=== PATIENT | female | born 1970 ===

== ENCOUNTER 2016-09-09 15:22 | Emergency (ER) | payer BC ==
--- NOTE | 2016-09-09 16:11 | DIAGNOSTIC IMAGING REPORT ---
PROCEDURE: XR CHEST 2 VIEW INDICATION: COUGH TECHNIQUE: PA and lateral views. COMPARISON: None. FINDINGS: Left pulmonary infiltrate. Heart and mediastinum are normal. Thorax is normal. IMPRESSION: 1. Left pulmonary infiltrate.
--- NOTE | 2016-09-09 17:16 | ED NURSING NOTES ---
Clinical Report - Nurses [facility] [address] [place] [address] 09/09/2016 15:27 Patient: JASPER LOPEZ TRIAGE Triage time 1538. Acuity: LEVEL 3. Chief Complaint: (was seen at [facility] yesterday and started on antibiotis, neb tx, and steroids. pt states cough seems worse). --15:57 Vanna Mandujano R.N. 15:38 09/09/16. BP: 128/68. HR: 89. RR: 18. O2 saturation: 95% on room air. Temp: 98.1 F. --15:57 Vanna Mandujano R.N. 15:57 09/09/16. Pain level now 5/10. --18:22 Vanna Mandujano R.N. Weight: 68.4 kg stated. Height/Length: 60 inches Per Patient. BMI: 29.5. --15:47 Vanna Mandujano R.N. Medications Albuterol Sulfate Inhalation 2 puffs, PRN, last dose 1400. --15:51 Vanna Mandujano R.N. Promethazine HCl Oral 5cc , every 6 hours, last dose 0900. --15:52 Vanna Mandujano R.N. Azithromycin Oral 250 mg, daily, last dose on day 2 of 5 day course. --15:52 Vanna Mandujano R.N. Fluticasone Furoate Nasal 1 spray daily . --15:53 Vanna Mandujano R.N. Allergies Diclofenac.(dizziness) --15:54 Vanna Mandujano R.N. History Arrived by private vehicle. Historian: patient. Accompanied by son. Primary physician (yoselin mabry- [facility]). Onset. (wednesday). She has had fever and a cough. PAST MEDICAL HX: Diabetes mellitus. Hypertension. ( Chiai malformation). The patient is post-menopausal. ( migraines). SURGERY HX: Appendectomy. (x2). Left knee surgery. SOCIAL HX: Former smoker (quit 4 years ago). No alcohol use or drug use. --15:57 Vanna Mandujano R.N. Interventions ID band on patient. To treatment room. --15:57 Vanna Mandujano R.N. PHYSICAL ASSESSMENT 15:38. Ambulatory to room. Patient gowned. GENERAL / NEURO / PSYCH: Alert. Oriented X 4. Appears in no acute distress. ( pt c/o feeling weak and tired). RESPIRATORY: The patient can speak in full sentences. Cough. CVS: Capillary refill less than 2 seconds. GI / : Abdomen soft. SKIN: Skin is warm and dry. --15:47 Vanna Mandujano R.N. NURSING PROGRESS NOTES 15:38. Patient gowned. Reassurance given. Patient identifiers checked. Call light placed in reach. Side rails up. Bed placed in lowest position. Patient ready for evaluation- chart flagged. --15:46 Vanna Mandujano R.N. 15:46 09/09/16. Patient transported to radiology by stretcher with tech. --15:46 Vanna Mandujano R.N. 15:56. Patient returned from radiology by stretcher with tech. --15:58 Vanna Mandujano R.N. 17:00 09/09/2016 Site #1 started via IV in the left antecubital space with an 20g angiocath, with aseptic technique and good blood return; one attempt. Blood drawn: rainbow set and cultures x1. Labeled in the presence of the patient. Saline lock flushed with 10 mL saline. --17:31 Vanna Mandujano R.N. 17:10 09/09/2016 Started bag #1 1000 mL IV Fluids IV NS (Saline); at 1000 mL/hr over 1 minute(s) via site #1 via IV pump. IV patency established. IV site checked: no pain, redness, or swelling. IV flushed thoroughly pre- and post-medication administration. --17:31 Vanna Mandujano R.N. 17:17 09/09/2016 Started 2 gm of Rocephin (CefTRIAXone Sodium) IVPB in bag #1 50 mL; at 150 mg/hr over 20 minute(s) via site #1 via IV pump. --17:32 Vanna Mandujano R.N. 16:15 09/09/16. BP: 130/64. HR: 88. RR: 18. O2 saturation: 94%. Temp: deferred. Pain level now: 08/19. --19:34 Vanna Mandujano R.N. 17:37 09/09/2016 Rocephin IVPB Discontinued: bag #1 infused upon discharge. Total amount infused: 50 mL. --19:35 Vanna Mandujano R.N. 18:15 09/09/2016 Site #1 removed upon discharge. Bandaid applied. --19:40 Vanna Mandujano R.N. 18:15 09/09/2016 IV Fluids IV NS Discontinued: bag #1 STOPPED upon discharge. Total amount infused: 1000 mL. IV patency established. IV site checked: no pain, redness, or swelling. IV flushed thoroughly. --19:40 Vanna Mandujano R.N. DISPOSITION / DISCHARGE 18:26 09/09/16. Condition at departure: stable. No learning barriers present. Discharge instructions provided and reviewed with the patient. Reviewed medication(s) (tylenol #3 for pain/cough, continue other meds). Patient verbalized understanding. Written instructions provided in Montenegrin. The patient was discharged home and accompanied by family. She left the Emergency Department ambulatory and via private vehicle. Driving (son). --18:26 Vanna Mandujano R.N. 18:32. Condition at departure: improved and stable. ( states she doesnt feel dizzy anymore). --19:33 Vanna Mandujano R.N. 18:32 09/09/16. BP: 109/59. HR: 82. RR: 18. O2 saturation: 95% on room air. Temp: deferred. Pain level now: 08/19. --19:33 Vanna Mandujano R.N. Locked/Released at 09/09/2016 19:40 by Vanna Mandujano R.N.
--- NOTE | 2016-09-09 17:16 | ED ORDER SUMMARY ---
..... Patient: JASPER LOPEZ OrderSheet [facility] VisitID: [id number] [address] [place] [address] 46y, F Registration Date/Time: 09/09/2016 ORDER SHEET Weight: 68.4 kg (stated) Allergies: Diclofenac GENERAL ORDERS: Chest 2V Urgent (15:35 09/09/2016 Gerard VARGAS) (Ack 15:36 LNations ER Tech1) (15:50 IJurca ER Tech1) CBC w Diff Urgent (15:35 09/09/2016 Gerard VARGAS) (Ack 15:36 LNations ER Tech1) (16:20 IJurca ER Tech1) PT with INR Urgent (15:35 09/09/2016 Gerard VARGAS) (Ack 15:36 LNations ER Tech1) (16:20 IJurca ER Tech1) CMP Urgent (16:16 09/09/2016 Gerard VARGAS) (16:20 IJurca ER Tech1) MEDICATION ORDERS: Rocephin IM 2 gm (NOW) (16:01 09/09/2016 Gerard VARGAS) (Ack 16:06 DDean R.N.) (Cancelled: Other16:17 Gerard VARGAS) IV FLUIDS: IV NS : initial bolus 1000 mL (1000 mL/hr), then none - (NOW) (16:16 09/09/2016 Gerard VARGAS) (17:31 DDean R.N.) Rocephin IV 2 gm/50mL (NOW) (16:17 09/09/2016 Gerard VARGAS) (17:32 DDean R.N.) ORDER SHEET NOTES: [Electronically signed by Vanna Mandujano R.N. (19:40 09/09/2016)] [Electronically signed by Julieta Montaño MD (10:46 09/17/2016)] [Electronically locked/signed by Vanna Mandujano R.N. (19:40 09/09/2016)]
--- NOTE | 2016-09-09 17:16 | ED CLINICAL REPORT ---
Clinical Report - Physicians/Mid Levels [facility] [address] [place] [address] 09/09/2016 15:27 Patient: JASPER LOPEZ Time Seen: 15:34. Arrived- By private vehicle. Historian- patient. HISTORY OF PRESENT ILLNESS Chief Complaint: COUGH. Hemoptysis. This started several days ago and is still present. The illness is described as moderate. The patient has had a cough, a mild sore throat and nasal congestion. She has had scant amounts of blood tinged sputum. No difficulty breathing, chest discomfort or pain, fever or muscle aches. No chills, hoarseness, nasal discharge, sinus pressure or sinus drainage. No ear pain. (Patient was seen yesterday in the urgent care clinic, where she was prescribed Zithromax, an inhaler and steroids. Patient states they did not do an x-ray of her chest.). Additional history - No known contact with a sick individual. Similar symptoms previously: None. Recent medical care: The patient was seen recently at another facility in a clinic. REVIEW OF SYSTEMS No headache, eye discomfort, nausea, vomiting or diarrhea. No abdominal pain, hay fever, pedal edema, calf pain or difficulty with urination. No skin rash, enlarged lymph nodes or joint pain. All systems otherwise negative, except as recorded above. PAST HISTORY Problems: Hypertension. Diabetes Mellitus. Additional Surgeries: Appendectomy. . Knee Surgery. Medications: Fluticasone Furoate Nasal 1 spray daily . Azithromycin Oral 250 mg, daily, last dose on day 2 of 5 day course. Promethazine HCl Oral 5cc , every 6 hours, last dose 0900. Albuterol Sulfate Inhalation 2 puffs, PRN, last dose 1400. Allergies: Diclofenac.(dizziness). SOCIAL HISTORY Former smoker. No alcohol use or drug use. ADDITIONAL NOTES The nursing notes have been reviewed. PHYSICAL EXAM Vital Signs: 09/09/2016 15:38 BP: 128/68. HR: 89. RR: 18. O2 saturation: 95%. Temp: 98.1 F. Have been reviewed. Appearance: Alert. No acute distress. Eyes: Pupils equal, round and reactive to light. Eyes normal inspection. ENT: Nose normal. Neck: Normal inspection. CVS: Normal heart rate and rhythm. Heart sounds normal. Pulses normal. Respiratory: No respiratory distress. Breath sounds normal. (Patient has a mild, occasional cough.). Abdomen: Soft and nontender. No organomegaly. Back: Normal inspection. No CVA tenderness. Skin: Skin warm and dry. Normal skin color. No rash. Normal skin turgor. Extremities: Extremities exhibit normal ROM. No lower extremity edema. Neuro: No motor deficit. No sensory deficit. (Patient is grossly oriented.). LABS, X-RAYS, AND EKG Chest X-ray: Small, patchy infiltrate in the left lung base and left lower lobe. Consistent with pneumonia. Normal heart size. Mediastinum normal. Great vessels normal. Soft tissues normal. No fracture. No bony lesion present. Views: AP. Technique: good. The X-rays were independently viewed by me, interpreted by the radiologist and contemporaneously by me and discussed with the radiologist. Prior films were not available for comparison. Laboratory Tests: CBC w Diff: (ELLEN: 09/09/2016 16:20) ( MsgRcvd 09/09/2016 16:30) Final results Test Result Flag Units (Reference) WHITE BLOOD COUNT 6.1 K/uL (4.5-11.5) RED BLOOD COUNT 5.54 H M/uL (4.00-5.20) HEMOGLOBIN 16.5 H gm/dL (12.0-16.0) HEMATOCRIT 48.7 H % (36.0-46.0) MEAN CELL VOLUME 88 fL (80-100) MEAN CORPUSCULAR HGB 30 pg (26-34) MEAN CORPUSCULAR HGB CONC 34 g/dL (31-37) RED CELL DISTRIBUTION WIDTH 12.1 % (11.6-14.8) PLATELET COUNT 147 L K/uL (150-400) NEUTROPHIL % 67.1 % (50-75) LYMPH % 26.0 % (25-40) MONO % 6.4 % (3-14) EOSINOPHIL % 0.2 % (0-4) BASOPHIL % 0.3 % (0-2) PT with INR: (ELLEN: 09/09/2016 16:20) ( MsgRcvd 09/09/2016 16:34) Final results Test Result Flag Units (Reference) INR 0.9 (0.8-1.2) Low Intensity Therapy: INR 1.5-2.0 PT range 18.5-23.1Mod.Intensity Therapy: INR 2.0-3.0 PT range 23.1-31.5High Intensity Therapy: INR 2.5-3.5 PT range 27.4-35.5High Intensity Therapy 2: INR 3.0-4.0 PT range 31.5-39.3 CMP: (ELLEN: 09/09/2016 16:20) ( MsgRcvd 09/09/2016 16:45) Final results Test Result Flag Units (Reference) GLUCOSE 306 H mg/dL (70-110) BUN 10 mg/dL (7-18) CREATININE 0.8 mg/dL (0.6-1.3) Estimated GFR >60 mL/min Estimated GFR- >60 mL/min Note: Persistent reduction over 3 months in eGFR<60 mL/min/1.73 m2 defines CKD. Patients with eGFR values>=60 mL/min/1.73 m2 may also have CKD if evidence ofpersistent proteinuria. Additional information may be foundat www.kidney.org. SODIUM 133 L mmol/L (136-145) POTASSIUM 3.8 mmol/L (3.5-5.1) CHLORIDE 96 L mmol/L (98-107) CARBON DIOXIDE 24 mmol/L (21-32) CALCIUM 8.4 L mg/dL (8.5-10.1) TOTAL PROTEIN 7.7 g/dL (6.4-8.2) ALBUMIN 3.0 L g/dL (3.3-5.0) BILIRUBIN, TOTAL 0.6 mg/dL (0.0-1.0) ALKALINE PHOSPHATASE 101 U/L (46-116) AST (SGOT) 36 U/L (15-37) ALT (SGPT) 50 U/L (12-78) . Pulse Oximetry: 09/09/2016 15:38 O2 saturation: 95%. (FIO2 - room air). Interpretation: normal. PROGRESS AND PROCEDURES Course of Care: Patient was worked up for her symptoms with a chest x-ray which showed a small retrocardiac pneumonia, as well as a CBC which showed a normal white blood cell count and a slightly in increased hemoglobin and hematocrit. INR was normal in conference a metabolic panel is unremarkable. Patient was treated with parenteral Rocephin to augment the Zithromax that she was ready on. No emergent condition was identified. Patient counseled in person regarding the patient's stable condition, test results, diagnosis and need for follow-up. Concerns were addressed. Old medical records reviewed. Disposition: Discharged. Condition: stable and improved. CLINICAL IMPRESSION Bacterial pneumonia. Vital signs recorded and reviewed; empiric antibiotics given in the ED. No hypoxemia, respiratory failure or sepsis. Moderate hyperglycemia INSTRUCTIONS Drink plenty of fluids. (Your chest x-ray shows pneumonia in the lower part of your left lung. You had been given an extra dose of antibiotics today for this through the IV. You should continue the antibiotics that you've RE been started on until your course is complete. You may take the Tylenol 3 for cough or chest pain. If you have increasing problems with her breathing after the next couple of days you should return to the emergency department for recheck.). Warnings: GENERAL WARNINGS: Return or contact your physician immediately if your condition worsens or changes unexpectedly, if not improving as expected, or if other problems arise. Your Current Medications: CONTINUE TAKING THE FOLLOWING MEDICATIONS: Albuterol Sulfate Inhalation : 2 puffs PRN, Last: 1400. Azithromycin Oral : 250 mg daily, Last: on day 2 of 5 day course. Fluticasone Furoate Nasal : 1 spray daily. Promethazine HCl Oral : 5cc every 6 hours, Last: 0900. Prescription Medications: Tylenol with Codeine Tylenol #3 (30 mg / 300 mg) : take 1-2 tablets orally every 6 hours. Dispense twenty (20). No refill. Substitution is permissible. (prn pain/cough) Follow-up: Follow up with your doctor in seven days if not better. Reason for referral: Recheck. Understanding of the discharge instructions verbalized by patient. (Electronically signed by Julieta Montaño MD 09/17/2016 10:46)
--- NOTE | 2016-09-09 17:16 | ED ORDER SUMMARY ---
..... Patient: JASPER LOPEZ OrderSheet [facility] VisitID: [id number] [address] [place] [address] 46y, F Registration Date/Time: 09/09/2016 ORDER SHEET Weight: 68.4 kg (stated) Allergies: Diclofenac GENERAL ORDERS: Chest 2V Urgent (15:35 09/09/2016 Gerard VARGAS) (Ack 15:36 LNations ER Tech1) (15:50 IJurca ER Tech1) CBC w Diff Urgent (15:35 09/09/2016 Gerard VARGAS) (Ack 15:36 LNations ER Tech1) (16:20 IJurca ER Tech1) PT with INR Urgent (15:35 09/09/2016 Gerard VARGAS) (Ack 15:36 LNations ER Tech1) (16:20 IJurca ER Tech1) CMP Urgent (16:16 09/09/2016 Gerard VARGAS) (16:20 IJurca ER Tech1) MEDICATION ORDERS: Rocephin IM 2 gm (NOW) (16:01 09/09/2016 Gerard VARGAS) (Ack 16:06 DDean R.N.) (Cancelled: Other16:17 Gerard VARGAS) IV FLUIDS: IV NS : initial bolus 1000 mL (1000 mL/hr), then none - (NOW) (16:16 09/09/2016 Gerard VARGAS) (17:31 DDean R.N.) Rocephin IV 2 gm/50mL (NOW) (16:17 09/09/2016 Gerard VARGAS) (17:32 DDean R.N.) ORDER SHEET NOTES: [Electronically signed by Vanna Mandujano R.N. (19:40 09/09/2016)] [Electronically signed by Julieta Montaño MD (10:46 09/17/2016)] [Electronically locked/signed by Vanna Mandujano R.N. (19:40 09/09/2016)]
--- NOTE | 2016-09-09 17:16 | ED NURSING NOTES ---
Clinical Report - Nurses [facility] [address] [place] [address] 09/09/2016 15:27 Patient: JASPER LOPEZ TRIAGE Triage time 1538. Acuity: LEVEL 3. Chief Complaint: (was seen at [facility] yesterday and started on antibiotis, neb tx, and steroids. pt states cough seems worse). --15:57 Vanna Mandujano R.N. 15:38 09/09/16. BP: 128/68. HR: 89. RR: 18. O2 saturation: 95% on room air. Temp: 98.1 F. --15:57 Vanna Mandujano R.N. 15:57 09/09/16. Pain level now 5/10. --18:22 Vanna Mandujano R.N. Weight: 68.4 kg stated. Height/Length: 60 inches Per Patient. BMI: 29.5. --15:47 Vanna Mandujano R.N. Medications Albuterol Sulfate Inhalation 2 puffs, PRN, last dose 1400. --15:51 Vanna Mandujano R.N. Promethazine HCl Oral 5cc , every 6 hours, last dose 0900. --15:52 Vanna Mandujano R.N. Azithromycin Oral 250 mg, daily, last dose on day 2 of 5 day course. --15:52 Vanna Mandujano R.N. Fluticasone Furoate Nasal 1 spray daily . --15:53 Vanna Mandujano R.N. Allergies Diclofenac.(dizziness) --15:54 Vanna Mandujano R.N. History Arrived by private vehicle. Historian: patient. Accompanied by son. Primary physician (yoselin mabry- [facility]). Onset. (wednesday). She has had fever and a cough. PAST MEDICAL HX: Diabetes mellitus. Hypertension. ( Chiai malformation). The patient is post-menopausal. ( migraines). SURGERY HX: Appendectomy. (x2). Left knee surgery. SOCIAL HX: Former smoker (quit 4 years ago). No alcohol use or drug use. --15:57 Vanna Mandujano R.N. Interventions ID band on patient. To treatment room. --15:57 Vanna Mandujano R.N. PHYSICAL ASSESSMENT 15:38. Ambulatory to room. Patient gowned. GENERAL / NEURO / PSYCH: Alert. Oriented X 4. Appears in no acute distress. ( pt c/o feeling weak and tired). RESPIRATORY: The patient can speak in full sentences. Cough. CVS: Capillary refill less than 2 seconds. GI / : Abdomen soft. SKIN: Skin is warm and dry. --15:47 Vanna Mandujano R.N. NURSING PROGRESS NOTES 15:38. Patient gowned. Reassurance given. Patient identifiers checked. Call light placed in reach. Side rails up. Bed placed in lowest position. Patient ready for evaluation- chart flagged. --15:46 Vanna Mandujano R.N. 15:46 09/09/16. Patient transported to radiology by stretcher with tech. --15:46 Vanna Mandujano R.N. 15:56. Patient returned from radiology by stretcher with tech. --15:58 Vanna Mandujano R.N. 17:00 09/09/2016 Site #1 started via IV in the left antecubital space with an 20g angiocath, with aseptic technique and good blood return; one attempt. Blood drawn: rainbow set and cultures x1. Labeled in the presence of the patient. Saline lock flushed with 10 mL saline. --17:31 Vanna Mandujano R.N. 17:10 09/09/2016 Started bag #1 1000 mL IV Fluids IV NS (Saline); at 1000 mL/hr over 1 minute(s) via site #1 via IV pump. IV patency established. IV site checked: no pain, redness, or swelling. IV flushed thoroughly pre- and post-medication administration. --17:31 Vanna Mandujano R.N. 17:17 09/09/2016 Started 2 gm of Rocephin (CefTRIAXone Sodium) IVPB in bag #1 50 mL; at 150 mg/hr over 20 minute(s) via site #1 via IV pump. --17:32 Vanna Mandujano R.N. 16:15 09/09/16. BP: 130/64. HR: 88. RR: 18. O2 saturation: 94%. Temp: deferred. Pain level now: 08/19. --19:34 Vanna Mandujano R.N. 17:37 09/09/2016 Rocephin IVPB Discontinued: bag #1 infused upon discharge. Total amount infused: 50 mL. --19:35 Vanna Mandujano R.N. 18:15 09/09/2016 Site #1 removed upon discharge. Bandaid applied. --19:40 Vanna Mandujano R.N. 18:15 09/09/2016 IV Fluids IV NS Discontinued: bag #1 STOPPED upon discharge. Total amount infused: 1000 mL. IV patency established. IV site checked: no pain, redness, or swelling. IV flushed thoroughly. --19:40 Vanna Mandujano R.N. DISPOSITION / DISCHARGE 18:26 09/09/16. Condition at departure: stable. No learning barriers present. Discharge instructions provided and reviewed with the patient. Reviewed medication(s) (tylenol #3 for pain/cough, continue other meds). Patient verbalized understanding. Written instructions provided in [place]rugu[place]. The patient was discharged home and accompanied by family. She left the Emergency Department ambulatory and via private vehicle. Driving (son). --18:26 Vanna Mandujano R.N. 18:32. Condition at departure: improved and stable. ( states she doesnt feel dizzy anymore). --19:33 Vanna Mandujano R.N. 18:32 09/09/16. BP: 109/59. HR: 82. RR: 18. O2 saturation: 95% on room air. Temp: deferred. Pain level now: 08/19. --19:33 Vanna Mandujano R.N. Locked/Released at 09/09/2016 19:40 by Vanna Mandujano R.N.
--- NOTE | 2016-09-17 10:46 | ED DISCHARGE INSTRUCTIONS ---
Patient: JASPER LOPEZ General Instructions [facility] VisitID: [id number] [place] [address] 46y, F Registration Date/Time: 09/09/2016 Bacterial pneumonia. Vital signs recorded and reviewed; empiric antibiotics given in the ED. No hypoxemia, respiratory failure or sepsis. Moderate hyperglycemia INSTRUCTIONS Drink plenty of fluids. (Your chest x-ray shows pneumonia in the lower part of your left lung. You had been given an extra dose of antibiotics today for this through the IV. You should continue the antibiotics that you've RE been started on until your course is complete. You may take the Tylenol 3 for cough or chest pain. If you have increasing problems with her breathing after the next couple of days you should return to the emergency department for recheck.). Warnings: GENERAL WARNINGS: Return or contact your physician immediately if your condition worsens or changes unexpectedly, if not improving as expected, or if other problems arise. Your Current Medications: CONTINUE TAKING THE FOLLOWING MEDICATIONS: Albuterol Sulfate Inhalation : 2 puffs PRN, Last: 1400. Azithromycin Oral : 250 mg daily, Last: on day 2 of 5 day course. Fluticasone Furoate Nasal : 1 spray daily. Promethazine HCl Oral : 5cc every 6 hours, Last: 0900. Prescription Medications: Tylenol with Codeine Tylenol #3 (30 mg / 300 mg) : take 1-2 tablets orally every 6 hours. Dispense twenty (20). No refill. Substitution is permissible. (prn pain/cough) Follow-up: Follow up with your doctor in seven days if not better. Reason for referral: Recheck. Understanding of the discharge instructions verbalized by patient. ADDITIONAL INFORMATION Pneumonia (Adult) Pneumonia is an infection deep within the lung, in the small air sacs (alveoli). It may be due to a virus or bacteria and is usually treated with an antibiotic. Severe cases require treatment in the hospital. Milder cases can be treated at home. Symptoms usually start to improve during the first2 days of treatment. Home Care: Rest at home for the first 23 days or until you feel stronger. When resuming activity, dont let yourself become overly tired. Avoid exposure to cigarette smoke (yours or others). You may use acetaminophen (Tylenol) or ibuprofen (Motrin, Advil) to control fever or pain, unless another medicine was prescribed. [NOTE: If you have chronic liver or kidney disease or ever had a stomach ulcer or GI bleeding, talk with your doctor before using these medicines.] (Aspirin should never be used in anyone under 18 years of age who is ill with a fever. It may cause severe liver damage.) Your appetite may be poor so a light diet is fine. Keep well hydrated by drinking 68 glasses of fluids per day (water, sport drinks such as Gatorade, sodas without caffeine, juices, tea, soup, etc.). This will help loosen secretions in the lung, making it easier for you to cough up the phlegm (sputum). If you also have heart or kidney disease, check with your doctor before you drink extra amounts of fluids. Finish all antibiotic medicine prescribed, even if you are feeling better after a few days. Follow Up with your doctor in the next 23 days (or as advised) to be sure you are responding properly to the medicine. [NOTE: If you are age 65 or older, or if you have chronic lung disease (asthma, emphysema or COPD), we recommendthe pneumococcal vaccination and a yearlyinfluenzavaccination(flu-shot) every . Ask your doctor about this.] Get Prompt Medical Attention if any of the following occur: Not getting better within the first 48 hours of treatment Increasing shortness of breath or rapid breathing (over 25 breaths/minute) Coughing up blood or increasing chest pain with breathing Fever of 100.4F (38C) oral or higher, not better with fever medication Increasing weakness, dizziness or fainting Increasing thirst or dry mouth Sinus pain, headache or a stiff neck Chest pain not caused by coughing Diabetes with High Blood Sugar You have been treated for high blood sugar (hyperglycemia). This may be becauseof an infection or other illness;eating too many sweets or starches ; not taking enough insulin. Home care High blood sugar may cause symptoms that you can learn to recognize, such as these: If you feel like your blood sugar may be too high, measure it using a blood or urine test. If it is above your usual range, use the "sliding scale"rRegular insulin dose your doctor gave you to correct this. If no "sliding scale" orders were given, contact your doctor for further advice. If your blood sugar is over 300, and you can't reach your doctor, go to the hospital emergency room. Monitor and write down your blood sugars - and insulin dose, if you take insulin - atleast twice a day. Do this before breakfast and before dinner. Do this for the next 3 to 5 days. Follow-up care Follow up with your health care provderduring the next week to review your blood sugar records. You will find out if you need to adjust your dose of insulin or other medicine for blood sugar. When to seek medical care Get prompt medical attention if either of these occur: High blood sugar.Symptoms are frequent urination, feeling dizzy, thirst, headache, nausea or vomiting, abdominal pain, and drowsiness or loss of consciousness. Low blood sugar. Symptoms are fatigue, headache, shakes, excess sweating, hunger, anxiety, reduced vision, drowsiness, weakness, confusion or loss of consciousness, and seizure. You have been given the following additional information: Pneumonia (Adult) Diabetic Hyperglycemia (Electronically signed by Julieta Montaño MD 09/17/2016 10:46)
--- NOTE | 2016-09-17 10:47 | ED MED RECONCILIATION SUMMARY ---
Patient: JASPER LOPEZ Medication Reconciliation Report [facility] VisitID: [id number] [place] [address] 46y, F Registration Date/Time: 09/09/2016 Weight: 68.4 kg Height/Length: 60 in. BMI: 29.5 ALLERGIES: Diclofenac The patient's Home Medications are listed below: CONTINUE TAKING THE FOLLOWING MEDICATIONS: Albuterol Sulfate Inhalation 2 puffs, PRN, last dose: 1400 Azithromycin Oral 250 mg, daily, last dose: on day 2 of 5 day course Fluticasone Furoate Nasal 1 spray daily Promethazine HCl Oral 5cc , every 6 hours, last dose: 0900 The source(s) of the original Home Medication information: Not obtained. The following Medications were given to the patient in the Emergency Department: IV NS IV Fluids bolus 0, then 1000 mL/hr, administered: 09/09/2016 5:10:00 PM Rocephin [IVPB] IVPB bolus 0, then 2 gm 150 mg/hr, administered: 09/09/2016 5:17:00 PM The following Medications were prescribed to the patient: Tylenol with Codeine Tylenol #3 (30 mg / 300 mg) : take 1-2 tablets orally every 6 hours. Dispense twenty (20). No refill. Substitution is permissible.(prn pain/cough) -- Julieta Montaño MD
--- NOTE | 2016-09-17 10:47 | ED MAR SUMMARY ---
..... Medication Administration Record [facility] [address] [place] [address] Patient: JASPER LOPEZ Visit ID: [id number] 46y, F Weight: 68.4 kg Height/Length: 60 in BMI: 29.5 ALLERGIES: Diclofenac Start 17:10 09/09/2016 Vanna Mandujano R.N., Stop 18:15 09/09/2016 Vanna Mandujano R.N. Medication Administered: IV NS (SALINE), Dose: IV Fluids over 1 minute(s), Rate: 1000 mL/hr, Dispensed: 1000 mL bag, Site: #1 left AC. Medication Ordered: IV NS : initial bolus 1000 mL (1000 mL/hr), then none - (NOW). Start 17:17 09/09/2016 Vanna Mandujano R.N., Stop 17:37 09/09/2016 Vanna Mandujano R.N. Medication Administered: ROCEPHIN [IVPB] (CEFTRIAXONE SODIUM), Dose: 2 gm IVPB over 20 minute(s), Rate: 150 mg/hr, Dispensed: 50 mL bag, Site: #1 left AC. Medication Ordered: Rocephin IV 2 gm/50mL (NOW).
--- NOTE | 2016-09-17 10:47 | ED MED RECONCILIATION SUMMARY ---
Patient: JASPER LOPEZ Medication Reconciliation Report [facility] VisitID: [id number] [place] [address] 46y, F Registration Date/Time: 09/09/2016 Weight: 68.4 kg Height/Length: 60 in. BMI: 29.5 ALLERGIES: Diclofenac The patient's Home Medications are listed below: CONTINUE TAKING THE FOLLOWING MEDICATIONS: Albuterol Sulfate Inhalation 2 puffs, PRN, last dose: 1400 Azithromycin Oral 250 mg, daily, last dose: on day 2 of 5 day course Fluticasone Furoate Nasal 1 spray daily Promethazine HCl Oral 5cc , every 6 hours, last dose: 0900 The source(s) of the original Home Medication information: Not obtained. The following Medications were given to the patient in the Emergency Department: IV NS IV Fluids bolus 0, then 1000 mL/hr, administered: 09/09/2016 5:10:00 PM Rocephin [IVPB] IVPB bolus 0, then 2 gm 150 mg/hr, administered: 09/09/2016 5:17:00 PM The following Medications were prescribed to the patient: Tylenol with Codeine Tylenol #3 (30 mg / 300 mg) : take 1-2 tablets orally every 6 hours. Dispense twenty (20). No refill. Substitution is permissible.(prn pain/cough) -- Julieta Montaño MD
--- NOTE | 2016-09-17 10:47 | ED MAR SUMMARY ---
..... Medication Administration Record [facility] [address] [place] [address] Patient: JASPER LOPEZ Visit ID: [id number] 46y, F Weight: 68.4 kg Height/Length: 60 in BMI: 29.5 ALLERGIES: Diclofenac Start 17:10 09/09/2016 Vanna Mandujano R.N., Stop 18:15 09/09/2016 Vanna Mandujano R.N. Medication Administered: IV NS (SALINE), Dose: IV Fluids over 1 minute(s), Rate: 1000 mL/hr, Dispensed: 1000 mL bag, Site: #1 left AC. Medication Ordered: IV NS : initial bolus 1000 mL (1000 mL/hr), then none - (NOW). Start 17:17 09/09/2016 Vanna Mandujano R.N., Stop 17:37 09/09/2016 Vanna Mandujano R.N. Medication Administered: ROCEPHIN [IVPB] (CEFTRIAXONE SODIUM), Dose: 2 gm IVPB over 20 minute(s), Rate: 150 mg/hr, Dispensed: 50 mL bag, Site: #1 left AC. Medication Ordered: Rocephin IV 2 gm/50mL (NOW).
== END 2016-09-09 18:32 | disposition home or self-care (01) ==
LOC: ED SRH 15:22
DX: J15.9 Unspecified bacterial pneumonia (principal); E11.65 Type 2 diabetes mellitus with hyperglycemia; I10 Essential (primary) hypertension; Z79.899 Other long term (current) drug therapy; Z88.8 Allergy status to other drugs, medicaments and biological substances
CPT/HCPCS: 90100; 94060; 95059

== ENCOUNTER 2016-09-15 11:07 | Emergency (ER) | payer BC ==
--- NOTE | 2016-09-15 12:04 | DIAGNOSTIC IMAGING REPORT ---
PROCEDURE: XR CHEST 2 VIEW INDICATION: RECHECK PNEUMONIA. PLEURITIC LEFT CHEST PAIN. TECHNIQUE: PA and lateral views. COMPARISON: Chest 09/09/2016 FINDINGS: Resolution of left pulmonary infiltrate. Lungs are clear. Heart and mediastinum are normal. Thorax is normal. IMPRESSION: 1. Lungs clear
--- NOTE | 2016-09-16 10:00 | ED ORDER SUMMARY ---
..... Patient: JASPER LOPEZ OrderSheet [facility] VisitID: [id number] [place] [address] 46y, F Registration Date/Time: 09/15/2016 ORDER SHEET Weight: 31.0 kg (stated) Allergies: Diclofenac GENERAL ORDERS: Chest 2V Urgent (11:31 09/15/2016 Octaviano Rodriguez) (Ack 11:34 PWeiler ER Tech1) (12:22 EHassan R.N.) CBC w Diff Urgent (11:31 09/15/2016 Octaviano Rodriguez) (Ack 11:34 PWeipina ER Tech1) (11:50 EHassan R.N.) CMP Urgent (11:09/15/2016 Octaviano Rodriguez) (Ack 11:34 PWeipina ER Tech1) (11:50 EHassan R.N.) Urine Urgent (11:31 09/15/2016 Octaviano Rodriguez) (Ack 11:34 PWeipina ER Tech1) (11:50 EHassan R.N.) Pulse oximeter (11:31 09/15/2016 Octaviano Rodriguez) (11:37 EHassan R.N.) UA-Culture if indicated Urgent (11:50 09/15/2016 Octaviano Rodriguez) (Ack 11:54 PWeiler ER Tech1) (12:32 EHassan R.N.) MEDICATION ORDERS: Phenergan-Codeine PO 10 mL (HIGH ALERT MEDICATION, NOW) (12:55 09/15/2016 Octaviano Rodriguez) (13:01 EHassan R.N.) IV FLUIDS: IV Saline Lock (11:31 09/15/2016 Octaviano Rodriguez) (11:51 EHassan R.N.) ORDER SHEET NOTES: [Electronically signed by Elizabeth Youngblood R.N. (13:35 09/15/2016)] [Electronically signed by Michael Peñaloza Dr. (10:00 09/16/2016)] [Electronically locked/signed by Elizabeth Youngblood R.N. (13:35 09/15/2016)]
--- NOTE | 2016-09-16 10:00 | ED MED RECONCILIATION SUMMARY ---
Patient: JASPER LOPEZ Medication Reconciliation Report [facility] VisitID: [id number] [place] [address] 46y, F Registration Date/Time: 09/15/2016 Weight: 31.0 kg Height/Length: 60 in. BMI: 13.3 ALLERGIES: Diclofenac The patient's Home Medications are listed below: CONTINUE TAKING THE FOLLOWING MEDICATIONS: Albuterol Sulfate Inhalation 2 puffs, PRN, last dose: 1400 Probiotic Daily Oral Rizatriptan Benzoate Oral Topamax Oral The source(s) of the original Home Medication information: patient The following Medications were given to the patient in the Emergency Department: PHENERGAN-CODEINE [PO] PO 10 mL, administered: 09/15/2016 1:01:00 PM The following Medications were prescribed to the patient: Motrin 600 mg tablets: take 1 tablet orally every 6 hours as needed for pain, stiffness or swelling. Dispense thirty (30). No refill. Substitution is permissible.(take with food) -- Michael Peñaloza Dr. Phenergan w/ Codeine 10mg / 6.25mg per 5 mL: take 1-2 teaspoons every 6 hours as needed for pain or cough. Dispense sixty (60) mL. No refill. Substitution is permissible. -- Michael Peñaloza Dr.
--- NOTE | 2016-09-16 10:00 | ED MAR SUMMARY ---
..... Medication Administration Record [facility] [address] [place] [address] Patient: JASPER LOPEZ Visit ID: [id number] 46y, F Weight: 31.0 kg Height/Length: 60 in BMI: 13.3 ALLERGIES: Diclofenac Given 13:01 09/15/2016 Elizabeth Youngblood R.N. Medication Administered: PHENERGAN-CODEINE [PO] (PROMETHAZINE-CODEINE), Dose: 10 mL Oral Suspension PO. Medication Ordered: Phenergan-Codeine PO 10 mL (HIGH ALERT MEDICATION, NOW).
--- NOTE | 2016-09-16 10:00 | ED DISCHARGE INSTRUCTIONS ---
Patient: JASPER LOPEZ General Instructions [facility] VisitID: [id number] [place] [address] 46y, F Registration Date/Time: 09/15/2016 Pleurisy (left chest). Bacterial pneumonia. (subsequent encounter). INSTRUCTIONS Warnings: GENERAL WARNINGS: Return or contact your physician immediately if your condition worsens or changes unexpectedly, if not improving as expected, or if other problems arise. Specifically return if pain, vomiting, bleeding, breathing difficulty or fever. Your Current Medications: CONTINUE TAKING THE FOLLOWING MEDICATIONS: Albuterol Sulfate Inhalation : 2 puffs PRN, Last: 1400. Probiotic Daily Oral. Rizatriptan Benzoate Oral. Topamax Oral. Prescription Medications: Motrin 600 mg tablets: take 1 tablet orally every 6 hours as needed for pain, stiffness or swelling. Dispense thirty (30). No refill. Substitution is permissible. (take with food) Phenergan w/ Codeine 10mg / 6.25mg per 5 mL: take 1-2 teaspoons every 6 hours as needed for pain or cough. Dispense sixty (60) mL. No refill. Substitution is permissible. Follow-up: Return to the emergency department as needed. Follow up with your doctor in three days. Reason for referral: recheck today's concerns. Summary of care provided to patient via paper. Screening today revealed the patient's blood pressure to be in the normal range. The patient should follow up with a primary care provider for blood pressure management. Understanding of the discharge instructions verbalized by patient. ADDITIONAL INFORMATION Pleurisy If you have pleurisy, the lining around your lungs is inflamed. It is most often due to a viral infection or pneumonia. It usually lasts for 1014 days. It may cause sharp pain with breathing, coughing, sneezing and movement. Antibiotics are usually not prescribed for this condition unless pneumonia is also present. Home care The following will help you care for your condition at home: If symptoms are severe, rest at home for the first 23 days. Avoid being exposed to cigarette smoke (yours or that of others). You may use acetaminophen or ibuprofen to control pain, unless another pain medicine was prescribed. If you have chronic liver or kidney disease or ever had a stomach ulcer or GI bleeding, talk with your doctor before using these medicines. Follow-up care Follow up with your doctor or as advised if you do not improve over the next week. When to seek medical care Get prompt medical attention if any of the following occur: Increasing shortness of breath Increase in chest pain, or pain spreads to the neck, arm or back Fever over 100.4F (38.0C) for more than three days Coughing up lots of colored sputum (mucus) or blood Redness, pain or swelling of the leg Pneumonia (Adult) Pneumonia is an infection deep within the lung, in the small air sacs (alveoli). It may be due to a virus or bacteria and is usually treated with an antibiotic. Severe cases require treatment in the hospital. Milder cases can be treated at home. Symptoms usually start to improve during the first2 days of treatment. Home Care: Rest at home for the first 23 days or until you feel stronger. When resuming activity, dont let yourself become overly tired. Avoid exposure to cigarette smoke (yours or others). You may use acetaminophen (Tylenol) or ibuprofen (Motrin, Advil) to control fever or pain, unless another medicine was prescribed. [NOTE: If you have chronic liver or kidney disease or ever had a stomach ulcer or GI bleeding, talk with your doctor before using these medicines.] (Aspirin should never be used in anyone under 18 years of age who is ill with a fever. It may cause severe liver damage.) Your appetite may be poor so a light diet is fine. Keep well hydrated by drinking 68 glasses of fluids per day (water, sport drinks such as Gatorade, sodas without caffeine, juices, tea, soup, etc.). This will help loosen secretions in the lung, making it easier for you to cough up the phlegm (sputum). If you also have heart or kidney disease, check with your doctor before you drink extra amounts of fluids. Finish all antibiotic medicine prescribed, even if you are feeling better after a few days. Follow Up with your doctor in the next 23 days (or as advised) to be sure you are responding properly to the medicine. [NOTE: If you are age 65 or older, or if you have chronic lung disease (asthma, emphysema or COPD), we recommendthe pneumococcal vaccination and a yearlyinfluenzavaccination(flu-shot) every . Ask your doctor about this.] Get Prompt Medical Attention if any of the following occur: Not getting better within the first 48 hours of treatment Increasing shortness of breath or rapid breathing (over 25 breaths/minute) Coughing up blood or increasing chest pain with breathing Fever of 100.4F (38C) oral or higher, not better with fever medication Increasing weakness, dizziness or fainting Increasing thirst or dry mouth Sinus pain, headache or a stiff neck Chest pain not caused by coughing Ibuprofen Oral tablet What is this medicine? IBUPROFEN (eye BYOO proe fen) is a non-steroidal anti-inflammatory drug (NSAID). It is used for dental pain, fever, headaches or migraines, osteoarthritis, rheumatoid arthritis, or painful monthly periods. It can also relieve minor aches and pains caused by a cold, flu, or sore throat. How should I use this medicine? Take this medicine by mouth with a glass of water. Follow the directions on the prescription label. Take this medicine with food if your stomach gets upset. Try to not lie down for at least 10 minutes after you take the medicine. Take your medicine at regular intervals. Do not take your medicine more often than directed. A special MedGuide will be given to you by the pharmacist with each prescription and refill. Be sure to read this information carefully each time. Talk to your broadcast transmitter operator regarding the use of this medicine in children. Special care may be needed. What side effects may I notice from receiving this medicine? Side effects that you should report to your doctor or health home care attendant as soon as possible: allergic reactions like skin rash, itching or hives, swelling of the face, lips, or tongue black or bloody stools, blood in the urine or in vomit breathing problems changes in vision chest pain general ill feeling or flu-like symptoms nausea or vomiting redness, blistering, peeling or loosening of the skin, including inside the mouth slurred speech or weakness on one side of the body stomach pain unexplained weight gain or swelling unusually weak or tired yellowing of eyes or skin Side effects that usually do not require medical attention (report to your doctor or health home care attendant if they continue or are bothersome): constipation or diarrhea dizziness gas or heartburn stomach upset What may interact with this medicine? Do not take this medicine with any of the following medications: cidofovir ketorolac methotrexate pemetrexed This medicine may also interact with the following medications: alcohol aspirin diuretics lithium other drugs for inflammation like prednisone warfarin What if I miss a dose? If you miss a dose, take it as soon as you can. If it is almost time for your next dose, take only that dose. Do not take double or extra doses. Where should I keep my medicine? Keep out of the reach of children. Store at room temperature between 15 and 30 degrees C (59 and 86 degrees F). Keep container tightly closed. Throw away any unused medicine after the expiration date. What should I tell my health care provider before I take this medicine? They need to know if you have any of these conditions: asthma cigarette smoker drink more than 3 alcohol containing drinks a day heart disease or circulation problems such as heart failure or leg edema (fluid retention) high blood pressure kidney disease liver disease stomach bleeding or ulcers an unusual or allergic reaction to ibuprofen, aspirin, other NSAIDS, other medicines, foods, dyes, or preservatives or trying to get breast-feeding What should I watch for while using this medicine? Tell your doctor or healthcare professional if your symptoms do not start to get better or if they get worse. This medicine does not prevent heart attack or stroke. In fact, this medicine may increase the chance of a heart attack or stroke. The chance may increase with longer use of this medicine and in people who have heart disease. If you take aspirin to prevent heart attack or stroke, talk with your doctor or health home care attendant. Do not take other medicines that contain aspirin, ibuprofen, or naproxen with this medicine. Side effects such as stomach upset, nausea, or ulcers may be more likely to occur. Many medicines available without a prescription should not be taken with this medicine. This medicine can cause ulcers and bleeding in the stomach and intestines at any time during treatment. Ulcers and bleeding can happen without warning symptoms and can cause . To reduce your risk, do not smoke cigarettes or drink alcohol while you are taking this medicine. You may get drowsy or dizzy. Do not drive, use machinery, or do anything that needs mental alertness until you know how this medicine affects you. Do not stand or sit up quickly, especially if you are an older patient. This reduces the risk of dizzy or fainting spells. This medicine can cause you to bleed more easily. Try to avoid damage to your teeth and gums when you brush or floss your teeth. You have been given the following additional information: Pleurisy Pneumonia (Adult) Ibuprofen Oral tablet (Electronically signed by Michael Peñaloza Dr. 09/16/2016 10:00)
--- NOTE | 2016-09-16 10:00 | ED MAR SUMMARY ---
..... Medication Administration Record [facility] [address] [place] [address] Patient: JASPER LOPEZ Visit ID: [id number] 46y, F Weight: 31.0 kg Height/Length: 60 in BMI: 13.3 ALLERGIES: Diclofenac Given 13:01 09/15/2016 Elizabeth Youngblood R.N. Medication Administered: PHENERGAN-CODEINE [PO] (PROMETHAZINE-CODEINE), Dose: 10 mL Oral Suspension PO. Medication Ordered: Phenergan-Codeine PO 10 mL (HIGH ALERT MEDICATION, NOW).
--- NOTE | 2016-09-16 10:00 | ED CLINICAL REPORT ---
Clinical Report - Physicians/Mid Levels [facility] [address] [place] [address] 09/15/2016 11:10 Patient: JASPER LPOEZ Time Seen: 1120. Arrived- By private vehicle. Historian- patient. HISTORY OF PRESENT ILLNESS Chief Complaint: COUGH. This started over a week ago and is still present. It was gradual in onset and has been constant but is not gone now. The illness is described as moderate. The patient has had a cough. She has had chest discomfort (left sided only when coughing). No fever. Additional history - No known contact with a sick individual. No recent travel. Similar symptoms previously: None. Recent medical care: Not recently seen/assessed. REVIEW OF SYSTEMS No nausea, pedal edema or skin rash. All systems otherwise negative, except as recorded above. PAST HISTORY See nurses notes. Medications: Topamax Oral. Rizatriptan Benzoate Oral. Probiotic Daily Oral. Albuterol Sulfate Inhalation 2 puffs, PRN, last dose 1400. Allergies: Diclofenac.(dizziness). SOCIAL HISTORY Never smoker. Not exposed to second-hand smoke at home. No alcohol use or drug use. No recent travel. Is a local resident. ADDITIONAL NOTES The nursing notes have been reviewed. PHYSICAL EXAM Vital Signs: 09/15/2016 11:24 BP: 188/90. HR: 82. RR: 15. O2 saturation: 98%. Temp: 97.6 F. Pain level now: 5/10. Oxygen saturation normal. Appearance: Alert. No acute distress. Eyes: Pupils equal, round and reactive to light. Eyes normal inspection. ENT: Ears normal. Nose normal. Pharynx normal. Uvula midline. Neck: Normal inspection. Neck supple. No meningeal signs. CVS: Normal heart rate and rhythm. Heart sounds normal. Pulses normal. Respiratory: No respiratory distress. Breath sounds normal. No rales, rhonchi, wheezes or stridor. Abdomen: Soft and nontender. No organomegaly. Skin: Skin warm and dry. Normal skin color. No rash. Normal skin turgor. Extremities: Extremities exhibit normal ROM. No lower extremity edema. LABS, X-RAYS, AND EKG Chest X-ray: (PROCEDURE: XR CHEST 2 VIEW INDICATION: RECHECK PNEUMONIA. PLEURITIC LEFT CHEST PAIN. TECHNIQUE: PA and lateral views. COMPARISON: Chest 09/09/2016 FINDINGS: Resolution of left pulmonary infiltrate. Lungs are clear. Heart and mediastinum are normal. Thorax is normal. IMPRESSION: 1. Lungs clear). Laboratory Tests: Urine: (ELLEN: 09/15/2016 12:35) [facility] Final results Test Result Flag Units (Reference) URINE NEGATIVE CBC w Diff: (ELLEN: 09/15/2016 11:50) ( [facility] [place] 12:02) Final results Test Result Flag Units (Reference) WHITE BLOOD COUNT 6.5 K/uL (4.5-11.5) RED BLOOD COUNT 5.38 H M/uL (4.00-5.20) HEMOGLOBIN 16.0 gm/dL (12.0-16.0) HEMATOCRIT 46.7 H % (36.0-46.0) MEAN CELL VOLUME 87 fL (80-100) MEAN CORPUSCULAR HGB 30 pg (26-34) MEAN CORPUSCULAR HGB CONC 34 g/dL (31-37) RED CELL DISTRIBUTION WIDTH 11.7 % (11.6-14.8) PLATELET COUNT 418 H K/uL (150-400) NEUTROPHIL % 60.6 % (50-75) LYMPH % 30.7 % (25-40) MONO % 3.8 % (3-14) EOSINOPHIL % 3.5 % (0-4) BASOPHIL % 1.4 % (0-2) CMP: (ELLEN: 09/15/2016 11:50) ( [facility] 09/15/2016 12:17) IP Test Result Flag Units (Reference) BUN 10 mg/dL (7-18) CREATININE 0.7 mg/dL (0.6-1.3) Estimated GFR >60 mL/min Estimated GFR- >60 mL/min Note: Persistent reduction over 3 months in eGFR<60 mL/min/1.73 m2 defines CKD. Patients with eGFR values>=60 mL/min/1.73 m2 may also have CKD if evidence ofpersistent proteinuria. Additional information may be foundat www.kidney.org. SODIUM 128 L mmol/L (136-145) CHLORIDE 93 L mmol/L (98-107) CARBON DIOXIDE 24 mmol/L (21-32) CALCIUM 8.9 mg/dL (8.5-10.1) ALBUMIN 2.8 L g/dL (3.3-5.0) BILIRUBIN, TOTAL 0.7 mg/dL (0.0-1.0) . PROGRESS AND PROCEDURES Course of Care: the patient is a 46-year-old female with recent diagnosis of left-sided pneumonia presenting for evaluation of persistent cough and pleuritic left-sided chest pain. On examination, the patient is resting in bed and in a mild amount of Patient is concerned about the discomfort and the persistent cough. Patient be reevaluated with a chest x-ray as well as laboratory studies for evaluation of any signs of sepsis. Patient does appear nontoxic. Patient is agreeable to the treatment and plan. Pain medication as well as IV hydration provided. The patient's repeat radiograph shows significant improvement and resolution of the left-sided pneumonia. Was able to show the patient her change in chest x-ray. Laboratory studies are also unremarkable. A urinalysis was also added on because of concern for potential urinary tract infection. Patient states that she had some discomfort with urinating a few days ago. No discomfort at this point in time. Urinalysis was added on. Urinalysis does not show any signs of urinary tract infection. Symptoms here in the emergency department that significantly improved. Pain had resolved. Because of the patient's result dilution of symptoms and overall benign workup, did not fill patient needs to be admitted to the hospital require further emergency department workup/evaluation. Because the patient's result pneumonia, do not feel repeatt requd. I discussion with patient in regards to pleuritic-type chest pain and need for follow-up. No signs of pleural effusion. Patient is noted be slightly hyponatremic but does not need to be admitted to the hospital for this. Discussed with the patient her workup here in the emergency department including diagnosis, home care, follow-ag hesins андрей Repeat examination continues to be reassuring. Patient is resting in bed and in no acute distress. Disposition: Discharged. Condition: good. CLINICAL IMPRESSION Pleurisy (left chest). Bacterial pneumonia. (subsequent encounter). INSTRUCTIONS Warnings: GENERAL WARNINGS: Return or contact your physician immediately if your condition worsens or changes unexpectedly, if not improving as expected, or if other problems arise. Specifically return if pain, vomiting, bleeding, breathing difficulty or fever. Your Current Medications: CONTINUE TAKING THE FOLLOWING MEDICATIONS: Albuterol Sulfate Inhalation : 2 puffs PRN, Last: 1400. Probiotic Daily Oral. Rizatriptan Benzoate Oral. Topamax Oral. Prescription Medications: Motrin 600 mg tablets: take 1 tablet orally every 6 hours as needed for pain, stiffness or swelling. Dispense thirty (30). No refill. Substitution is permissible. (take with food) Phenergan w/ Codeine 10mg / 6.25mg per 5 mL: take 1-2 teaspoons every 6 hours as needed for pain or cough. Dispense sixty (60) mL. No refill. Substitution is permissible. Follow-up: Return to the emergency department as needed. Follow up with your doctor in three days. Reason for referral: recheck today's concerns. Summary of care provided to patient via paper. Screening today revealed the patient's blood pressure to be in the normal range. The patient should follow up with a primary care provider for blood pressure management. Understanding of the discharge instructions verbalized by patient. (Electronically signed by Michael Peñaloza Dr. 09/16/2016 10:00)
--- NOTE | 2016-09-16 10:00 | ED ORDER SUMMARY ---
..... Patient: JASPER LOPEZ OrderSheet [facility] VisitID: [id number] [place] [address] 46y, F Registration Date/Time: 09/15/2016 ORDER SHEET Weight: 31.0 kg (stated) Allergies: Diclofenac GENERAL ORDERS: Chest 2V Urgent (11:31 09/15/2016 Octaviano Rodriguez) (Ack 11:34 PWeiler ER Tech1) (12:22 EHassan R.N.) CBC w Diff Urgent (11:31 09/15/2016 Octaviano Rodriguez) (Ack 11:34 PWeipina ER Tech1) (11:50 EHassan R.N.) CMP Urgent (11:09/15/2016 Octaviano Rodriguez) (Ack 11:34 PWeipina ER Tech1) (11:50 EHassan R.N.) Urine Urgent (11:31 09/15/2016 Octaviano Rodriguez) (Ack 11:34 PWeipina ER Tech1) (11:50 EHassan R.N.) Pulse oximeter (11:31 09/15/2016 Octaviano Rodriguez) (11:37 EHassan R.N.) UA-Culture if indicated Urgent (11:50 09/15/2016 Octaviano Rodriguez) (Ack 11:54 PWeiler ER Tech1) (12:32 EHassan R.N.) MEDICATION ORDERS: Phenergan-Codeine PO 10 mL (HIGH ALERT MEDICATION, NOW) (12:55 09/15/2016 Octaviano Rodriguez) (13:01 EHassan R.N.) IV FLUIDS: IV Saline Lock (11:31 09/15/2016 Octaviano Rodriguez) (11:51 EHassan R.N.) ORDER SHEET NOTES: [Electronically signed by Elizaebth Youngblood R.N. (13:35 09/15/2016)] [Electronically signed by Michael Peñaloza Dr. (10:00 09/16/2016)] [Electronically locked/signed by Elizabeth Youngblood R.N. (13:35 09/15/2016)]
--- NOTE | 2016-09-16 10:00 | ED NURSING NOTES ---
Clinical Report - Nurses [facility] [address] [place] [address] 09/15/2016 11:10 Patient: JASPER LOPEZ TRIAGE Triage time 1110. Acuity: LEVEL 3. Chief Complaint: COUGH and SORE THROAT. Alert. No acute distress. SEPSIS SCREEN: Sepsis Screen. Negative (no infection suspected/documented). --11:36 Elizabeth Youngblood R.N. 11:24 09/15/16. BP: 188/90 (regular adult cuff) taken on the left arm, via an automated monitor, while sitting. HR: 82. RR: 15. O2 saturation: 98%. Temp: 97.6 F. Pain level now: 08/19. --11:36 Elizabeth Youngblood R.N. Weight: 31 kg stated. Height/Length: 60 inches Per Patient. BMI: 13.3. --11:23 Elizabeth Youngblood R.N. Medications Albuterol Sulfate Inhalation 2 puffs, PRN, last dose 1400. --11:25 Elizabeth Youngblood R.N. Probiotic Daily Oral. --11:32 Elizabeth Youngblood R.N. Rizatriptan Benzoate Oral. --11:35 Elizabeth Youngblood R.N. Topamax Oral. --11:36 Elizabeth Youngblood R.N. The following entry was struck by Elizabeth Youngblood R.N., 11:32 (09/15/16) Reason - other. <<STRICKEN ENTRY-- Fluticasone Furoate Nasal 1 spray daily . --11:25 Elizabeth Youngblood R.N. --END STRIKE>> The following entry was struck by Elizabeth Youngblood R.N., 11:32 (09/15/16) Reason - other. <<STRICKEN ENTRY-- Promethazine HCl Oral 5cc , every 6 hours, last dose 0900. --11:25 Elizabeth Youngblood R.N. --END STRIKE>>. Allergies Diclofenac.(dizziness) --11:25 Elizabeth Youngblood R.N. Medication/allergy information source: the patient. --11:36 Elizabeth Youngblood R.N. History Arrived by private vehicle. Historian: family. Accompanied by family. ( Pt was here on the was told she had pneumonia who was also on antibiotics (Z pack went to a clinic the day before on the ). Pt still coughing, not feeling well, dizziness, SOB, pain upon coughing, has experienced periods of "feeling hot". Denies vomiting, diarrhea.). This is a recurrent problem. Symptoms still present. She has had a nasal discharge, chest congestion, fatigue and a headache. Reports muscle aches. No sinus pain or difficulty breathing. 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 PAST MEDICAL HX: Immunizations: up-to-date. Last normal menstrual period- 2 years. The patient is post-menopausal. SOCIAL HX: Former smoker. No alcohol use or drug use. No infectious disease exposure. ABUSE ASSESSMENT: No report of abuse. SELF HARM ASSESSMENT: A self harm assessment was performed. The patient answered "no" to the question "Do you have thoughts of harming or killing yourself?" and "Have you recently had thoughts about harming or killing others?". FALL RISK ASSESSMENT: Fall risk assessment completed. No fall risk identified. NUTRITIONAL RISK ASSESSMENT: The nutritional risk assessment revealed no deficiencies. FUNCTIONAL ASSESSMENT: Functional assessment: no impairments noted. LEARNING NEEDS ASSESSMENT: The learning needs assessment revealed no barriers. SKIN INTEGRITY ASSESSMENT: Skin integrity risk assessment completed. No skin integrity risk identified. --:36 Elizabeth Youngblood R.N. PROBLEMS: Hyperglycemia. Pneumonia. Hypertension. Diabetes Mellitus. --11:25 Elizabeth Youngblood R.N. ADDITIONAL SURGERIES: Appendectomy. . Knee Surgery. --11:25 Elizabeth Youngblood R.N. Interventions ID band on patient. --11:36 Elizabeth Youngblood R.N. PHYSICAL ASSESSMENT To room via wheelchair. GENERAL / NEURO / PSYCH: Alert. Oriented X 4. HEENT: Pupils equal, round and reactive to light. Ears within normal limits. Nares within normal limits. Mouth within normal limits upon inspection. Pharynx within normal limits. Voice within normal limits. Mucous membranes are pink. RESPIRATORY: Respirations not labored. Crackles left lung base posteriorly and mid-lung posteriorly. CVS: Capillary refill less than 2 seconds. SKIN: Skin is warm and dry. Normal skin turgor. --11:37 Elizabeth Youngblood R.N. NURSING PROGRESS NOTES The initial plan of care for this patient has been created This plan of care was discussed with the patient. Pulse oximeter and NIBP monitor placed on patient; monitor alarms on. Patient gowned. Warming measures: blanket applied. Reassurance given. Two patient identifiers checked. Call light placed in reach. Side rails up x 1. Bed placed in lowest position. --11:37 Elizabeth Youngblood R.N. 11:51 09/15/2016 Site #1 started via IV in the left antecubital space with an 20g angiocath; one attempt. Blood drawn: rainbow set. Labeled in the presence of the patient and sent to the lab. --11:51 Elizabeth Youngblood R.N. Pulse oximeter and NIBP monitor placed on patient. Reassurance given. Call light placed in reach. --11:51 Elizabeth Youngblood R.N. 11:51 09/15/16. BP: 191/103 (regular adult cuff) taken on the right arm, via an automated monitor, while sitting. HR: 74. RR: 18. O2 saturation: 100% on room air. Pain level now: 07/20. --11:51 Elizabeth Youngblood R.N. 12:30 09/15/16. BP: 124/68. HR: 68. RR: 16. O2 saturation: 96% on room air. Pain level now: 06/19. --12:50 Elizabeth Youngblood R.N. Pulse oximeter and NIBP monitor placed on patient; monitor alarms on. Reassurance given. The patient is calm and resting quietly. Overall patient status is the same- she states feels the same. HEENT: The patient reports sore throat. No hoarseness. RESPIRATORY: The patient reports cough. Denies difficulty breathing. CVS: Denies chest pain. Call light placed in reach. --12:50 Elizabeth Youngblood R.N. 13:01 09/15/2016 PHENERGAN-CODEINE (Promethazine-Codeine) PO Oral Suspension 10 mL given. Allergies verified and confirmed 5 rights. --13:01 Elizabeth Youngblood R.N. 13:29 09/15/2016 PHENERGAN-CODEINE PO Response: no adverse reaction. --13:34 Elizabeth Youngblood R.N. 13:30 09/15/2016 Site #1 removed upon discharge. Manual pressure, pressure dressing, bandaid and bandage applied. --13:35 Elizabeth Youngblood R.N. DISPOSITION / DISCHARGE Departure time: 1335 PM. Condition at departure: unchanged and stable. The goals identified in the patient's plan of care were met. No learning barriers present. Discharge instructions provided and reviewed with the patient. Reviewed medication(s) side effects, precautions, dosing and course information. Prescription(s) given to the patient. Patient and family verbalized understanding. Written instructions provided in Moldovan. No treatment instructions or referrals given to the patient. The patient was discharged by the physician. She was discharged home and accompanied by family. She left the Emergency Department ambulatory and via private vehicle. Family member driving. FALL RISK ASSESSMENT: Fall risk assessment completed. No fall risk identified. --13:34 Elizabeth Youngblood R.N. 13:30 09/15/16. BP: 124/58. HR: 85. RR: 16. O2 saturation: 96% on room air. Temp: 98 F. Pain level now: 0/10. --13:34 Elizabeth Youngblood R.N. Locked/Released at 09/15/2016 13:35 by Elizabeth Youngblood R.N.
--- NOTE | 2016-09-16 10:00 | ED MED RECONCILIATION SUMMARY ---
Patient: JASPER LOPEZ Medication Reconciliation Report [facility] VisitID: [id number] [place] [address] 46y, F Registration Date/Time: 09/15/2016 Weight: 31.0 kg Height/Length: 60 in. BMI: 13.3 ALLERGIES: Diclofenac The patient's Home Medications are listed below: CONTINUE TAKING THE FOLLOWING MEDICATIONS: Albuterol Sulfate Inhalation 2 puffs, PRN, last dose: 1400 Probiotic Daily Oral Rizatriptan Benzoate Oral Topamax Oral The source(s) of the original Home Medication information: patient The following Medications were given to the patient in the Emergency Department: PHENERGAN-CODEINE [PO] PO 10 mL, administered: 09/15/2016 1:01:00 PM The following Medications were prescribed to the patient: Motrin 600 mg tablets: take 1 tablet orally every 6 hours as needed for pain, stiffness or swelling. Dispense thirty (30). No refill. Substitution is permissible.(take with food) -- Michael Peñaloza Dr. Phenergan w/ Codeine 10mg / 6.25mg per 5 mL: take 1-2 teaspoons every 6 hours as needed for pain or cough. Dispense sixty (60) mL. No refill. Substitution is permissible. -- Michael Peñaloza Dr.
== END 2016-09-15 13:35 | disposition home or self-care (01) ==
LOC: ED SRH 11:07
DX: R09.1 Pleurisy (principal); J15.9 Unspecified bacterial pneumonia; I10 Essential (primary) hypertension; E11.9 Type 2 diabetes mellitus without complications; Z79.899 Other long term (current) drug therapy; Z88.6 Allergy status to analgesic agent
CPT/HCPCS: 90004; 90100; 93070; 95059